=== PATIENT | female | born 1965 | race Caucasian/White ===

== ENCOUNTER 2017-10-16 19:13 | Emergency (ER) | payer OTHER ==
[~2017-10-16] VITALS: Ht 175.3 cm; Wt 72.2 kg
[~2017-10-16 19:13] MED LIST: BROMSYP PO; ETOD200 PO; HYDR-3583 PO; SOMA350T PO; VENTAER INH
[2017-10-16 19:22] VITALS: BP 152/70; PULSE 111; RESP 16; TEMP 97; O2SAT 96
[2017-10-16] MEDS ORDERED: CYMB30CA PO (19:41)
--- NOTE | 2017-10-16 20:19 | PD ---
HPI Chief Complaint: Laceration/Skin Injury Time Seen by Provider: 19:42 Travel History International Travel<30 days: No Contact w/Intl Traveler<30days: No Traveled to known affect area: No History of Present Illness HPI 52-year-old female presents to the emergency room for evaluation of a laceration to her right fourth toe that occurred just prior to arrival. Patient accidentally dropped a glass on the floor which cut her toe. She immediately applied pressure and came to the ED. Denies significant pain. Reports mild paresthesias worse than normal. She has had a tetanus shot within the past 5 years. PFSH Past Medical History Arthritis: Yes Blood Disorders: No Cardiovascular Problems: No Cerebrovascular Accident: No Diabetes: No Diminished Hearing: No Immunizations Current: Yes Myocardial Infarction: No Seizures: No Ulcer: No Tetanus Vaccination: < 5 Years Influenza Vaccination: No ?: Not LMP: menopause : 3 Para: 1 Miscarriage: 1 : 1 Past Surgical History Genitourinary Surgery: Yes (CYSTOSCOPY X 3 A CHILD S/P DEFECT) Other Surgery: Yes (CYSTOSCOPY) Social History Alcohol Use: Yes (SOCIAL) Tobacco Use: No Substance Use: No Allergies-Medications (Allergen,Severity, Reaction): Coded Allergies: morphine (Unverified Allergy, Intermediate, Hotflash, 10/16/17) naproxen (Verified Allergy, Intermediate, rash, 10/16/17) latex (Verified Allergy, Unknown, rash, 10/16/17) Reported Meds & Prescriptions Reported Meds & Active Scripts Active Hydrocodone-Acetaminophen 10-325 mg Tab 1 Tab PO TID PRN Soma (Carisoprodol) 350 Mg Tab 350 Mg PO TID PRN Etodolac 200 Mg Cap 400 Mg PO TID Take with food. Reported Cymbalta DR (Duloxetine HCl) 30 Mg Capdr 30 Mg PO BID Review of Systems Except as stated in HPI: all other systems reviewed are Neg Physical Exam Narrative GENERAL: Well-nourished, well-developed female no acute distress. Ambulatory. SKIN: Focused skin assessment warm/dry. There is a 1 cm superficial laceration to the right fourth toe on the lateral side. Mildly tender. No foreign body. HEAD: Normocephalic. EYES: No scleral icterus. No injection or drainage. NECK: Supple, trachea midline. No JVD or lymphadenopathy. CARDIOVASCULAR: Regular rate and rhythm without murmurs, gallops, or rubs. RESPIRATORY: Breath sounds equal bilaterally. No accessory muscle use. MUSCULOSKELETAL: No cyanosis, or edema. Full range of motion of the toe. Data Data Last Documented VS Vital Signs Date Time Temp Pulse Resp B/P (MAP) Pulse Ox O2 Delivery O2 Flow Rate FiO2 10/16/17 19:22 97.0 111 16 152/70 (97) 96 MDM Medical Decision Making Medical Screen Exam Complete: Yes Emergency Medical Condition: Yes Medical Record Reviewed: Yes Differential Diagnosis Laceration, contusion, abrasion, skin tear Narrative Course 52-year-old female presents to the emergency room for evaluation of a laceration to her right fourth toe that occurred just prior to arrival. Patient dropped a glass on the floor which cut her toe. She applied pressure and came here. Tetanus is up-to-date. Physical exam reveals a 1 cm well approximated linear laceration to the right fourth lateral toe. It was thoroughly cleansed and then repaired, see procedure note for details. Patient discharged with wound care instructions and told to follow-up with primary care physician or return for worsening symptoms. She understands and agrees to plan. Procedures Procedure Narrative LACERATION LOCATION: Right fourth toe LENGTH: 1 cm NUMBER OF STITCHES/ABILIO: 3 simple interrupted REPAIR: The area of the laceration was prepped with Betadine and sterilely draped. The laceration was infiltrated with 1% lidocaine. The wound was copiously irrigated and explored without evidence of foreign body, tendon injury or neurovascular injury. The wound was closed using 5-0 Prolene. This was a single layer repair. A sterile dressing was applied. The patient was advised to keep the dressing clean and dry. Patient tolerated the procedure well. Diagnosis Primary Impression: Toe laceration Qualified Codes: S91.114A - Laceration without foreign body of right lesser toe(s) without damage to nail, initial encounter Referrals: Primary Care Physician Additional Instructions: Keep wound clean and dry. Apply triple antibiotic ointment daily. Stitches out in 7-10 days. Follow-up with primary care physician. Return for worsening symptoms. Disposition: 01 DISCHARGE HOME Condition: Stable Mita Apodaca Oct 16, 2017 20:19
== END 2017-10-16 20:40 | disposition home or self-care (01) ==
LOC: PHEFT 19:13
DX: S91.114A Laceration without foreign body of right lesser toe(s) without damage to nail, initial encounter (principal); R20.2 Paresthesia of skin; W25.XXXA Contact with sharp glass, initial encounter
CPT/HCPCS: 12001